=== PATIENT | female | born 1945 | race Caucasian/White ===

== ENCOUNTER → 2018-04-18 | Day surgery (SDC) | payer MEDICARE, OTHER ==
[2018-04-17 13:28] LABS: BASOPHILS % 0.5 % (0.0-1.0); EOSINOPHILS # (AUTO) 0.3 (0.0-0.4); EOSINOPHILS % 3.2 % (0.0-6.0); HEMATOCRIT 43.4 % (34.2-44.1); LYMPHOCYTES # (AUTO) 2.4 (1.0-3.2); LYMPHOCYTES % 28.7 % (18.0-39.1); MEAN CORPUSCULAR HEMOGLOBIN 32.4 pg (28-32); MEAN CORPUSCULAR HGB CONC 32.3 g/dL (31-35); MEAN CORPUSCULAR VOLUME 100.5 fL (81-99); MONOCYTES # (AUTO) 0.5 (0.2-0.8); MONOCYTES % 5.5 % (4.4-11.3); NEUTROPHILS % 61.6 % (38.7-80.0); PLATELET COUNT 182 x10e3/uL (140-360); RED BLOOD COUNT 4.32 x10e6/uL (3.6-5.1); RED CELL DISTRIBUTION WIDTH 14.5 % (11.7-14.4)
[2018-04-17 13:38] LABS: INR 1.13; PROTHROMBIN TIME 13.6 seconds (11.9-14.5)
[2018-04-17 13:49] LABS: ALANINE AMINOTRANSFERASE 9 IU/L (0-55); ALBUMIN 3.6 g/dL (3.5-5.0); ALKALINE PHOSPHATASE 64 IU/L (40-150); ANION GAP 19.2 mmol/L (8-16); BLOOD UREA NITROGEN 13 mg/dL (7-26); BUN/CREATININE RATIO 16 (6-25); CALCIUM 9.8 mg/dL (8.4-10.2); CARBON DIOXIDE 24 mmol/L (22-29); CHLORIDE 100 mmol/L (98-107); CHOL/HDL RATIO 4.4 (3.0-3.6); CHOLESTEROL 151 MD/DL (0-199); CREATININE, SERUM 0.83 mg/dL (0.57-1.11); EST GLOMERULAR FILTRATION RATE > 60 ML/MIN (60-); GLUCOSE 79 mg/dL (74-118); HDL CHOLESTEROL 34 MG/DL (40-60); LDL CHOLESTEROL 94 MG/DL (60-130); POTASSIUM 3.2 mmol/L (3.5-5.1); SODIUM 140 mmol/L (136-145); TRIGLYCERIDES 115 MG/DL (0-149)
[2018-04-18] VITALS (9 sets, daily range): BP systolic 116–158; BP diastolic 61–88
[~2018-04-18] VITALS: Ht 163.8 cm; Wt 72.6 kg
[~2018-04-18] MED LIST: ASA81 MG; ASPIRIN81 MG PO; DIPHENHYDRAMINE HCL INJ 50 MG/ML VIAL ONE; FAMOTIDINE 20 MG/2 ML VIAL IV ONE; FENTANYL CITRATE/PF 100MCG/2 ML INJ ONE; FUROSEMIDE20 MG PO; GABAPENTIN100 MG PO; GABAPENTIN300 MG PO; HEPARIN SOD/SOD CHLORIDE 2,000 ML ONE; IOPAMIDOL 370 MG/ML 200 ML INFUS..BTL INJ ONE; LIDOCAINE HCL 2% LOCAL 20 ML VIAL ONE; MAGNESIUM PO; MELATONIN5 M2 PO; METHYLPREDNISOLONE SOD SUCC 125 MG/2ML VIAL ONE; METOPROLOL SUCC50 MG PO; MIDAZOLAM HCL 2 MG/2 ML VIAL ONE; Melatonin PO; PANTOPRAZOLE SO40 MG PO; PRAVASTATIN SOD20 MG PO; PRAVASTATIN SOD40 MG PO; SERTRALINE HCL100 MG PO; SODIUM CHLORIDE 0.9% 1000ML 1,000 ML ONE; TYLENOL WITH C1 EACH PO; Z ALTACE PO; Z.0.CRESTOR5 MG; Z.0.NEXIUM40 MG; Z.0.PLAVIX75 MG PO; Z.0.TOPROL XL25 MG
--- NOTE | 2018-04-18 11:31 | Operative Report ---
DATE OF PROCEDURE: April 18, 2018 INDICATIONS: Coronary artery disease. Abnormal stress test. PROCEDURES PERFORMED 1. Left heart catheterization, selective coronary angiography. 2. Deployment of right groin Perclose. COMPLICATIONS: None. RECOMMENDATIONS: Dual antiplatelet therapy and medical therapy for moderate coronary artery disease. Access was obtained in the right femoral artery. A 6-[place] sheath was placed. Diagnostic coronary angiogram revealed 20% left main stenosis, 50% proximal left anterior descending artery stenosis, mid-circumflex 50% stenosis, proximal right coronary artery 50% stenosis. 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 LV end-diastolic pressure was 10. No gradient across the aortic valve on pullback. Right groin repaired using Perclose. Patient discharged home the same day. COMPLICATIONS: None. BLOOD LOSS: 5 mL. Job#: [id number]
== END | disposition home or self-care (01) ==
LOC: CATH LAB 06:33
PROVIDERS: ATTEND Internal Medicine Interventional Cardiology
DX: I25.118 Atherosclerotic heart disease of native coronary artery with other forms of angina pectoris (principal); R94.39 Abnormal result of other cardiovascular function study; I10 Essential (primary) hypertension; I73.9 Peripheral vascular disease, unspecified; F17.200 Nicotine dependence, unspecified, uncomplicated; Z01.812 Encounter for preprocedural laboratory examination; Z79.02 Long term (current) use of antithrombotics/antiplatelets; Z79.82 Long term (current) use of aspirin; Z89.512 Acquired absence of left leg below knee; Z88.8 Allergy status to other drugs, medicaments and biological substances; Z88.6 Allergy status to analgesic agent; Z91.041 Radiographic dye allergy status
CPT/HCPCS: 36415; 80053; 80061; 85025; 85610; 93458; C1725; C1769; J1200; J2001; J2250; J2930; J7030; Q9967